=== PATIENT | female | born 1985 | race Caucasian/White ===

== ENCOUNTER 2019-11-03 00:35 | Emergency (ER) | payer BC ==
[~2019-11-03] VITALS: Ht 160 cm; Wt 48.5 kg
[2019-11-03] MEDS ORDERED: TDAP DIPH,PERTUSS,TET VAC/PF 0.5 ML DISP.SYRIN IM ONE ×2 (01:15→01:22)
[2019-11-03] MEDS ORDERED: ONDANSETRON ODT 4 MG TAB.RAPDIS SL ONE (01:15)
[2019-11-03] MEDS ORDERED: AMOXICILLIN-CLAVUL 875-125MG TABLET PO ONE (01:15)
[2019-11-03] MEDS ORDERED: ONDANSETRON ODT 4 MG TAB.RAPDIS ONE (01:22)
[2019-11-03] MEDS ORDERED: AMOXICILLIN-CLAVUL 875-125MG TABLET ONE (01:22)
[2019-11-03 01:38] VITALS: BP 104/72
== END 2019-11-03 01:39 | disposition home or self-care (01) ==
LOC: ER 00:43
DX: S61.451A Open bite of right hand, initial encounter (principal); W54.0XXA Bitten by dog, initial encounter; Y93.89 Activity, other specified; Y92.89 Other specified places as the place of occurrence of the external cause; Y99.8 Other external cause status
CPT/HCPCS: 90715; A4663; Q0162